=== PATIENT | female | born 1990 | race Caucasian/White ===

== ENCOUNTER 2018-08-02 11:20 | Outpatient (CLI) | payer BC, SELFPAY ==
--- NOTE | 2018-08-02 10:50 | DI.RAD_ITS ---
SYMPTOM/DIAGNOSIS: COUGH, R05 PA AND LATERAL CHEST: 08/02 The heart is not enlarged. The lungs are clear with interval clearing of patchy pulmonary infiltrate noted projected in right middle lobe on previous examination of 04/24/18. No pleural effusion seen. CONCLUSION: Negative examination of the chest.
== END 2018-08-02 11:40 ==
PROVIDERS: PCP Nurse Practitioner Family; Visit Provider Nurse Practitioner Family
DX: R05 Cough (principal)
CPT/HCPCS: 71046

== ENCOUNTER 2018-08-24 09:00 | Emergency (ER) | payer OTHER, BC, SELFPAY ==
[2018-08-24 09:05] VITALS: BP 129/87; PULSE 123; RESP 18; TEMP 36.4; O2SAT 97
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
[2018-08-24] MEDS: Acetaminophen 500 MG TAB 1000 MG PO (09:25)
[2018-08-24] MEDS: Normal Saline 1,000 ML 1000 ML IV (10:08)
[2018-08-24 10:19] LABS: Abs Immature Grans 0.03 k/cumm (0.0-0.09); Absolute Basophil Count 0.03 k/cumm (0.0-0.2); Absolute Eosinophil Count 0.14 k/cumm (0.0-0.7); Absolute Lymphocyte Count 2.01 k/cumm (1.2-3.4); Absolute Monocyte Count 0.63 k/cumm (0.11-0.7); Absolute Neutrophil Count 7.59 k/cumm (1.2-6.7); Basophils % 0.3; Eosinophils % 1.3; HCT 42.2 % (36.0-46.0); Immature Grans % 0.3; Lymphocytes % 19.3; Mean Corp. HGB Concentration 33.2 g/dL (32.0-36.0); Mean Corpuscular Hemoglobin 30.6 pg (27.0-33.0); Mean Corpuscular Volume 92.1 fL (80-95); Mean Platelet Volume 9.2 fL (8.0-11.0); Neutrophils % 72.8; Platelet Count 318 x1000/uL (130-400); RBC 4.58 m/cumm (4.00-5.20); RBC Distribution Width 12.9 % (11.7-14.6); White Blood Cell Count 10.43 k/cumm (4.4-10.8)
[2018-08-24 10:33] LABS: ALT 30 U/L (12-78); AST 15 U/L (15-37); Albumin 3.6 g/dL (3.4-5.0); Alkaline Phosphatase 85 U/L (46-116); Anion Gap 9.3 mmol/L (3-11); BUN 7 mg/dL (7-18); Bilirubin, Total 0.4 mg/dL (0.2-1.0); CO2 27.7 mmol/L (21.0-32.0); CREATININE 0.76 mg/dL (0.55-1.02); Calcium 9.1 mg/dL (8.5-10.1); Chloride 103 mmol/L (98-107); Glucose 107 mg/dL (70-100); Potassium 3.6 mmol/L (3.5-5.1); Sodium 140 mmol/L (136-145); Total Protein 7.5 g/dL (6.4-8.2)
[2018-08-24 10:35] LABS: Troponin I < 0.02 ng/mL (0.00-0.06)
[2018-08-24] MEDS: Omnipaque 350 MG/ML 100 ML BTL IJ (10:53)
[2018-08-24 11:08] VITALS: BP 120/83; PULSE 92; RESP 16; TEMP 36.7; O2SAT 98
[2018-08-24 12:20] VITALS: BP 132/83; PULSE 98; RESP 14; TEMP 37.2; O2SAT 98
== END 2018-08-24 12:22 | disposition home or self-care (01) ==
PROVIDERS: Emergency Provider Physician Assistant; PCP Nurse Practitioner Family
DX: S20.212A Contusion of left front wall of thorax, initial encounter (principal); S93.401A Sprain of unspecified ligament of right ankle, initial encounter; V47.6XXA Car passenger injured in collision with fixed or stationary object in traffic accident, initial encounter
CPT/HCPCS: 29515; 36415; 74177; 80053; 99285; 71260; 73610; 84484; 85025; 99284; J3490; L1902

== ENCOUNTER 2019-04-03 13:44 | Outpatient (REF) | payer OTHER, SELFPAY ==
--- NOTE | 2019-04-03 13:00 | PAPFT_PTH ---
PATIENT: Jade Garza LOC: [facility] U#:[id number] AGE/SX: 29/F ROOM: RE04/03/[address]: AMY Chávez : 1990 BED: DIS: 04/03/2019 SPEC #: [id number] RECD: 04/03/19 18:11 STATUS: IRMA REQ #: [id number] BRADY: 04/03/19 13:[address]: Yvette Fletcher DEPT: [facility] Cytology RECD BY: Carlie Perez ENTERED: 04/03/19 18:11 SP TYPE: PAPFT OTHR DR: Colette Clayton Tissues: 1 - CX/ENDOCX FOR PAP SMEARS Procedures: PAP THIN PREP/UVM Screening HPV DNA PROBE Comments: [id number]
== END 2019-04-03 14:04 ==
LOC: LBN 13:44
PROVIDERS: PCP Nurse Practitioner Family; Visit Provider Nurse Practitioner Family
DX: Z12.4 Encounter for screening for malignant neoplasm of cervix (principal); Z11.51 Encounter for screening for human papillomavirus (HPV)
CPT/HCPCS: 88142; 87624

== ENCOUNTER 2019-04-19 15:08 | Outpatient (REF) | payer OTHER, SELFPAY ==
--- NOTE | 2019-04-19 15:00 | ENDO_PTH ---
PATIENT: Jade Garza LOC: [facility] U#:[id number] AGE/SX: 29/F ROOM: RE04/19/[address]: Bill Leigh MD : 1990 BED: DIS: 04/19/2019 SPEC #: [id number] RECD: 04/19/19 17:41 STATUS: IRMA REQ #: [id number] BRADY: 04/19/19 15:[address]: Bill Leigh DEPT: Surgical Specimen RECD BY: Carlie Perez ENTERED: 04/19/19 17:42 SP TYPE: Endo OTHR DR: Colette Clayton Tissues: 1 - ENDOCERVICAL BX/CURRETTE Procedures: GROSS AND MICRO LEVEL 4 Comments: [id number]
== END 2019-04-19 15:28 ==
LOC: LBN 15:08
PROVIDERS: PCP Nurse Practitioner Family; Visit Provider Obstetrics & Gynecology
DX: N87.9 Dysplasia of cervix uteri, unspecified (principal); R87.810 Cervical high risk human papillomavirus (HPV) DNA test positive; Z87.410 Personal history of cervical dysplasia
CPT/HCPCS: 88305

== ENCOUNTER 2019-11-28 18:46 | Outpatient (REF) | payer SELFPAY ==
[2019-11-30 12:56] LABS: Chlamydia Result Negative (Negative); GC Result Negative (Negative)
== END 2019-11-28 19:06 ==
LOC: LBN 18:46
PROVIDERS: PCP Nurse Practitioner Family; Visit Provider Advanced Practice Midwife
DX: N89.8 Other specified noninflammatory disorders of vagina (principal); Z11.3 Encounter for screening for infections with a predominantly sexual mode of transmission
CPT/HCPCS: 87491; 87591; 87480; 87510; 87660

== ENCOUNTER 2020-05-06 09:31 | Outpatient (REF) | payer SELFPAY ==
--- NOTE | 2020-05-06 09:15 | PAPFT_PTH ---
PATIENT: Jade Garza LOC: [facility] U#:[id number] AGE/SX: 30/F ROOM: RE05/06/[address]: AMY Chávez : 1990 BED: DIS: 05/06/2020 SPEC #: [id number] RECD: 05/06/20 13:00 STATUS: IRMA RENancy #: [id number] BRADY: 05/06/20 09:[address]: Yvette Fletcher DEPT: [facility] Cytology RECD BY: Carlie Perez ENTERED: 05/06/20 13:00 SP TYPE: PAPFT OTHR DR: Colette Clayton Tissues: 1 - CX/ENDOCX FOR PAP SMEARS Procedures: PAP THIN PREP/UVM Screening HPV DNA PROBE Comments: [id number]
== END 2020-05-06 09:51 ==
LOC: LBN 09:31
PROVIDERS: PCP Nurse Practitioner Family; Visit Provider Nurse Practitioner Family
DX: Z12.4 Encounter for screening for malignant neoplasm of cervix (principal); Z11.51 Encounter for screening for human papillomavirus (HPV); R87.610 Atypical squamous cells of undetermined significance on cytologic smear of cervix (ASC-US)
CPT/HCPCS: 88142; 87624

== ENCOUNTER 2020-08-17 07:25 | Emergency (ER) | payer BC, SELFPAY ==
[2020-08-17 07:34] VITALS: BP 107/64; PULSE 109; RESP 18; TEMP 36.3; O2SAT 100
[2020-08-17 07:40] LABS: Bilirubin Negative (Negative); Blood Negative (Negative); Clarity Clear (Clear); Glucose Negative (Negative); Ketones Negative (Negative); Leukocyte Esterase Moderate (Negative); Nitrite Negative (Negative); Urobilinogen 0.2 EU/dL (Up TO 0.2)
[2020-08-17 07:57] LABS: Bacteria Few HPF (Negative); C & S Indicated? No/Sq. Contamination; Casts Negative LPF (Negative); Crystals Negative HPF (Negative); Epithelial Cells Many HPF (Negative); Mucus Negative (Negative); RBC 0-2 HPF (0-2)
[2020-08-17 08:22] LABS: Abs Immature Grans 0.05 10^3/uL (0.0-0.06); Absolute Basophil Count 0.04 10^3/uL (0.0-0.2); Absolute Eosinophil Count 0.13 10^3/uL (0.0-0.7); Absolute Lymphocyte Count 2.25 10^3/uL (1.2-3.4); Absolute Monocyte Count 0.56 10^3/uL (0.1-0.8); Basophils % 0.4; Eosinophils % 1.3; HCT 41.5 % (36.0-46.0); HGB 13.8 g/dL (11.2-15.7); Immature Grans % 0.5; Lymphocytes % 22.7; MCH 31.2 pg (27.0-33.0); MCHC 33.3 % (32.0-36.0); MCV 93.9 fL (80-95); MPV 9.2 fL (8.0-11.0); Monocytes % 5.6; Neutrophils % 69.5; Nucleated RBC 0 %; Platelet Count 266 10^3/uL (130-400); RBC 4.42 10^6/uL (3.93-5.22); RDW-SD 42.1 fL; WBC 9.93 10^3/uL (4.4-10.8)
[2020-08-17 08:36] LABS: ALT 15 U/L (14-59); AST 10 U/L (15-37); Albumin 3.8 g/dL (3.4-5.0); Alkaline Phosphatase 66 U/L (46-116); Anion Gap 7.2 mmol/L (3-11); BUN 8 mg/dL (7-18); Bilirubin, Total 0.5 mg/dL (0.2-1.0); CO2 25.8 mmol/L (21.0-32.0); Calcium 8.6 mg/dL (8.5-10.1); Chloride 104 mmol/L (98-107); Glucose 102 mg/dL (74-106); Lipase 106 U/L (73-393); Potassium 3.8 mmol/L (3.5-5.1); Sodium 137 mmol/L (136-145); Total Protein 7.2 g/dL (6.4-8.2)
--- NOTE | 2020-08-17 08:41 | ED.GENADUL_ITS ---
Discharge Plan Disposition Patient Disposition: HOME Condition: Stable Discharge Details Clinical Impression: Abdominal pain, Pancreatic lesion Primary Care Provider: Colette Clayton ED Provider: Christian Greenwood Home Meds and New Rx's Prescriptions: Continued Metamucil [place] powder 1 tbs PO ONCE RF: 0 multivitamin [Daily Multi-Vitamin] tablet 1 tab PO DAILY RF: 0 bupropion HCl [Wellbutrin XL] 150 mg tablet extended release 24 hr 150 mg PO QAM RF: 0 Discharge Instructions Instructions: How to Stop Smoking (ED), Abdominal Pain (ED) Additional Instructions: Allow for bowel rest: Please maintain a clear liquid diet today. You may advance her diet slowly to bland foods late tonight and continue to advance slowly as tolerated. Ultrasound and CT of her abdomen was interpreted by radiology and there was a notable echogenic structure seen in the pancreatic body/tail that was noted to possibly be a pancreatic lipoma. Radiologist noted that this could be further evaluated with pancreatic mass protocol MRI. Please discuss this with your primary care physician. Please contact your primary care physician to arrange follow-up. Call on Wednesday. Return to the ER for any worsening or new concerning symptoms. Referrals: Colette Clayton [Primary Care Provider] - Discharge Data Discharge Date/Time-TO BE ENTERED AT DEPARTURE: 08/17/20 11:50 Medical Decision Making 852??30-year-old female here with right upper quadrant abdominal pain that started yesterday, worse with deep inspiration, did have some nausea yesterday. Patient is focally tender in her right upper quadrant. No peritoneal findings. Bedside nzdel-vd-tqft ultrasound of the right upper quadrant was performed by me: No free fluid in Morison's pouch, view of the kidney reveals no significant hydronephrosis, gallbladder wall thickness 2.9mm, no pericholecystic fluid, no definite stone. Concern for acute cholecystitis with unvisualized stone in common bile duct versus hepatitis versus other. Plan to obtain official right upper quadrant abdominal ultrasound. Initial labs reviewed and no leukocytosis. LFTs normal. Lipase normal. Patient does have moderate leukocyte esterase and 5-10 WBCs with 0-2 RBCs on urinalysis. Patient has many epithelial cells. No urinary symptoms. Will attempt to repeat for clean-catch urinalysis. Toradol 30 mg IV for pain. 1026 --right upper quadrant ultrasound performed and technologist noted questionable lesion in the pancreas, no cholecystitis or choledocholithiasis. Awaiting radiology interpretation. I spoke with patient about results, plan for CT of the abdomen pelvis to assess for acute surgical pathology and to better characterize pancreas lesion. 1114 -- Ultrasound of the right upper quadrant interpreted by radiology: IMPRESSION: 1. Echogenic structure pancreatic body/tail. Possibly a pancreatic lipoma but indeterminate. This could be further evaluated with pancreatic mass protocol MRI with and without contrast. 2. Otherwise unremarkable exam. CT of the abdomen pelvis interpreted by radiology: IMPRESSION: 1. No acute findings. 2. There is no definite correlate for the small echogenic structure seen adjacent to or within the pancreas on the prior ultrasound. It is possible this could have represented a small indeterminate adjacent lymph node however pancreatic masses are poorly evaluated on single phase imaging. Although pancreatic malignancy felt uncommon in a patient of this age nonemergent dedicated multiphase pancreatic mass protocol imaging by either MRI or CT would better evaluate. Patient reassessed and pain has improved. Tachycardia resolved. She still continues to have some pain specifically with certain movements. Plan for outpatient follow-up with PCP. Patient should have MRI as outpatient as recommended in radiology report to better characterize pancreatic lesion. Usual customary discharge instructions were reviewed with the patient and it was stressed that she should return immediately for any worsening or new concerning symptoms. HPI General Mode of arrival: ambulatory . Date/Time Provider Initiated Documentation: 08/17/20 08:09 . Limitations to Documentation: no limitations . Information obtained by: patient . HPI Narrative: 30-year-old female presents with chief complaint of abdominal pain. Patient notes right upper quadrant abdominal pain that started yesterday late morning and has persisted and worsened. Patient notes pain came on gradually. Now moderate to severe. Pain described as sharp. Pain is worse when she takes a deep breath. Patient has had some recent associated nausea. No current nausea. No urinary symptoms. No vaginal discharge. No lower abdominal pain. Related Data Home Medications Medication Instructions Recorded Confirmed multivitamin 1 tab PO DAILY 04/03/19 08/17/20 psyllium seed (sugar) oral powder 1 tbs PO ONCE 04/03/19 08/17/20 bupropion HCl 150 mg 24 hr tablet, 150 mg PO QAM 11/28/19 08/17/20 extended release Allergies Allergy/AdvReac Type Severity Reaction Status Date / Time No Known Allergies Allergy Verified 08/17/20 07:41 General Stated Complaint: Abd Prob HEIDY: 3 Review of Systems All systems reviewed & are unremarkable except as noted in HPI and below Constitutional Constitutional: Denies fever(s) Cardiovascular Cardiovascular: Denies dyspnea Respiratory Respiratory: Denies dyspnea Gastrointestinal Gastrointestinal: Reports as per HPI Genitourinary Genitourinary: Denies hematuria, Denies dysuria and Denies vaginal discharge [facility] Medical History Mild dysplasia of cervix (THEODORA I) (05/17/17) Personal history of cervical dysplasia Hx THEODORA II-III 2011 Family History Mother Hypertension Menorrhagia Hysterectomy Social History Smoking/Tobacco Use Status: Current every day Tobacco Type: cigarettes Smoking risk assessment performed?: Yes Alcohol Intake: current Alcohol Intake frequency: a few times a week Drug use: Never Do you feel safe at home: Yes Do you feel safe in your relationship?: Yes Female Reproductive History Menstrual control method: permanent sterilization History History 2 Para 2 Hx # Term Pregnancies Multiple births Hx # Pregnancies Ectopic pregnancies AB induced Hx Number of Living Children AB spontaneous Exam Const General: cooperative and no acute distress HENMT Head: normocephalic Eyes Conjunctivae: normal conjunctivae Sclera: normal sclerae Neck Neck: trachea midline and supple Resp Auscultation: clear to auscultation bilaterally, no rales, no rhonchi and no wheezes Cardio Rate: regular rate and tachycardic Rhythm: regular rhythm Heart Sounds: no murmurs GI Palpation: soft, not firm, no guarding, no masses, not rigid and tender in the RUQ; with no rebound tenderness General: No CVA tenderness Skin General skin exam: no rashes or lesions noted Neuro General: patient alert, patient awake and tone normal Extrem General: no calf tenderness and no edema Psych Appearance: grossly normal Mental Status: mental status grossly normal Course Vital Signs Vital signs: Vital Signs Temperature 36.3 C L 08/17/20 07:34 Pulse 109 H 08/17/20 07:34 Respiratory Rate 18 08/17/20 07:34 Blood Pressure 107/64 08/17/20 07:34 Pulse Oximetry 100 08/17/20 07:34 Temperature 36.3 C L 08/17/20 07:34 Temperature Source Temporal Artery Scan 08/17/20 07:34 Pulse 109 H 08/17/20 07:34 Respiratory Rate 18 08/17/20 07:34 Respiratory Effort Non-Labored 08/17/20 07:39 Blood Pressure 107/64 08/17/20 07:34 Blood Pressure Position Sitting 08/17/20 07:34 Pulse Oximetry 100 08/17/20 07:34 Oxygen Delivery Method Room Air 08/17/20 07:34 Oxygen Flow Rate 0 08/17/20 07:34 Pain Level 8 08/17/20 07:34 Lab/Test Results Lab/Test Results: Laboratory Tests Range/Units 08/17/20 08/17/20 08/17/20 07:32 08:00 08:00 WBC (4.4-10.8) 10^3/uL 9.93 RBC (3.93-5.22) 10^6/uL 4.42 Hgb (11.2-15.7) g/dL 13.8 Hct (36.0-46.0) % 41.5 MCV (80-95) fL 93.9 MCH (27.0-33.0) pg 31.2 MCHC (32.0-36.0) % 33.3 RDW (11.7-14.6) % 12.0 Plt Count (130-400) 10^3/uL 266 MPV (8.0-11.0) fL 9.2 Immature Gran % 0.5 Neutrophils % 69.5 Lymphocytes % 22.7 Monocytes % 5.6 Eosinophils % 1.3 Basophils % 0.4 Nucleated RBC % % 0 Absolute Neutrophils (1.2-6.7) 10^3/uL 6.90 H Absolute Lymphocytes (1.2-3.4) 10^3/uL 2.25 Absolute Monocytes (0.1-0.8) 10^3/uL 0.56 Absolute Eosinophils (0.0-0.7) 10^3/uL 0.13 Absolute Basophils (0.0-0.2) 10^3/uL 0.04 Sodium (136-145) mmol/L 137 Potassium (3.5-5.1) mmol/L 3.8 Chloride (98-107) mmol/L 104 Carbon Dioxide (21.0-32.0) mmol/L 25.8 Anion Gap (3-11) mmol/L 7.2 BUN (7-18) mg/dL 8 Creatinine (0.55-1.02) mg/dL 0.80 Estimated GFR/1.73 m2 (mL/min/1.73m2) >= 60.00 Glucose (74-106) mg/dL 102 Calcium (8.5-10.1) mg/dL 8.6 Total Bilirubin (0.2-1.0) mg/dL 0.5 AST (15-37) U/L 10 L ALT (14-59) U/L 15 Alkaline Phosphatase (46-116) U/L 66 Total Protein (6.4-8.2) g/dL 7.2 Albumin (3.4-5.0) g/dL 3.8 Lipase (73-393) U/L 106 Urine Color (Yellow) Yellow Urine Clarity (Clear) Clear Urine pH (5-8) 7.0 Ur Specific [employer] (1.005-1.025) 1.010 Urine Protein (Negative) mg/dL Negative Urine Ketones (Negative) mg/dL Negative Urine Blood (Negative) Negative Urine Nitrite (Negative) Negative Urine Bilirubin (Negative) Negative Urine Urobilinogen (Up TO 0.2) EU/dL 0.2 Ur Leukocyte Esterase (Negative) Moderate H Urine RBC (0-2) HPF 0-2 Urine WBC (0-5) HPF 5-10 Ur Epithelial Cells (Negative) HPF Many Urine Crystals (Negative) HPF Negative Urine Bacteria (Negative) HPF Few Urine Casts (Negative) LPF Negative Urine Mucus (Negative) Negative Ur Culture Indicated? No/sq. contamination Urine Glucose (Negative) mg/dL Negative POC- Test(urine) Negative
[2020-08-17] MEDS: Ketorolac 30 MG/ML VIAL IVP (08:51)
[2020-08-17] MEDS: Lactated Ringers 500 ML IV (08:51)
--- NOTE | 2020-08-17 09:15 | DI.US_ITS ---
EXAM: US ABDOMEN LIMITED CLINICAL HISTORY: RUQ PAIN TECHNIQUE: Ultrasound abdomen performed using standard protocol. COMPARISON: CT CT ABDOMEN PELVIS W from 08/17/2020 FINDINGS: LIVER: Normal size and echogenicity. No focal liver lesions are seen.. GALLBLADDER: No evidence of cholelithiasis. No evidence of wall thickening. No pericholecystic fluid identified. MILLS'S SIGN: Negative. BILIARY SYSTEM: No intrahepatic or extrahepatic biliary ductal dilation. KIDNEYS: Kidneys are symmetric in size. No evidence of renal calculi. No evidence of hydronephrosis. No renal mass or cyst identified. PANCREAS: 8 millimeter echogenic focus in the body versus artifact. SPLEEN: Not enlarged. ABDOMINAL AORTA AND IVC: Visualized portions normal caliber. ASCITES: None seen. IMPRESSION: 8 millimeter echogenic focus in the pancreas could represent an artifact versus small lipoma. No acu te abnormality. DATA REPOSITORY:
[2020-08-17 09:46] LABS: Bilirubin Negative (Negative); Blood Negative (Negative); Clarity Sl Cloudy (Clear); Glucose Negative (Negative); Ketones Negative (Negative); Leukocyte Esterase Negative (Negative); Nitrite Negative (Negative); Specific Gravity 1.015 (1.005-1.025); Urobilinogen 0.2 EU/dL (Up TO 0.2); pH 7.5 (5-8)
[2020-08-17] MEDS: Normal Saline Flush 10 ML SYR IVP (10:36)
[2020-08-17] MEDS: Omnipaque 350 MG/ML 100 ML BTL IJ (10:36)
--- NOTE | 2020-08-17 10:38 | DI.CT_ITS ---
EXAM: CT ABDOMEN PELVIS W CLINICAL HISTORY: ruq abd pain, US pancreatic lesion?. TECHNIQUE: Imaging Protocol: Axial computed tomography images with coronal and sagittal reformatted images were created and reviewed CONTRAST MATERIAL: Intravenous: Omnipaque 350 Contrast volume:100 cc Oral: no FINDINGS: ABDOMEN: Lung Bases: Normal where visualized. Liver: Normal density. No measurable mass. Gallbladder and biliary tract: No radiodense calculus or dilation. Pancreas: Normal density, no abnormal calcifications or inflammatory process. No focal lesion is iden tified. The questioned 8 millimeter focus could have represented a small amount of adjacent fat. Spleen: Normal. Kidneys: Normal size, contour and axis. No radiodense stones or obstructive uropathy. No masses seen. Adrenal glands: No masses seen. Abdominal Aorta: Abdominal portion non-dilated. PELVIS: Bladder: Nondistended, no gross wall thickening. Bowel: No obstruction or bowel wall thickening. Peritoneal cavity: No ascites, collection or mesenteric inflammatory response. Bones: Within normal limits. Reproductive organs: Collapsing follicle right ovary. Physiologic amount of free fluid. Lymph nodes: Unremarkable. Impression: Unremarkable CT scan of the abdomen and pelvis. No abnormality is identified in the pancreas. The fi ndings on ultrasound could have been artifactual or could represent a focus adjacent fat. RADIATION DOSE DELIVERED: 931.93mGy.cm Total DLP DATA REPOSITORY: All CT scans at this facility are submitted to the National Radiology Data Registry (NRDR) Dose Index Registry (DIR) with the [employer] (ACR). RADIATION OPTIMIZATION: All CT scans at this facility use at least one of these dose optimization te chniques: automated exposure control; mA and/or kV adjustment per patient size (includes targeted exa ms where dose is matched to clinical indication); or iterative reconstruction.
--- NOTE | 2020-08-17 10:48 | DI.VRAD_ITS ---
PROCEDURE INFORMATION: Exam: US Abdomen, Limited; Right Upper Quadrant Exam date and time: 08/17/2020 10:15 AM Age: 30 years old Clinical indication: Other: Ruq pain since yesterday in the am. TECHNIQUE: Imaging protocol: US abdomen. Real time ultrasound with image documentation. Limited exam focused on the right upper quadrant. COMPARISON: CT Abdomen^CAP WITH (Adult) 08/24/2018 10:31 AM FINDINGS: Liver: Unremarkable liver. Gallbladder: Unremarkable gallbladder. Negative reported sonographic Toney sign. Common bile duct: Common bile duct measures normal caliber. Pancreas: There is a small echogenic lesion seen within the pancreatic body/tail measuring up to 8 mm. No significant vascularity is seen. Right kidney: Unremarkable right kidney. Aorta: Visualized aorta is normal caliber. Portal venous: Portal vein demonstrates appropriate directional flow. Inferior vena cava: Visualized IVC unremarkable. IMPRESSION: 1. Echogenic structure pancreatic body/tail. Possibly a pancreatic lipoma but indeterminate. This could be further evaluated with pancreatic mass protocol MRI with and without contrast. 2. Otherwise unremarkable exam. Dictated and Authenticated by: John Boyd MD. Ordering:THIERNO Valles MD
[2020-08-17] MEDS: Normal Saline - Diluent 50 ML VIAL IV (10:49)
--- NOTE | 2020-08-17 11:10 | DI.VRAD_ITS ---
PROCEDURE INFORMATION: Exam: CT Abdomen And Pelvis With Contrast Exam date and time: 08/17/2020 10:20 AM Age: 30 years old Clinical indication: Abdominal pain; Other: Ruq pain; Patient HX: Ruq abdomen pain, u/s pancreatic lesion. TECHNIQUE: Imaging protocol: Computed tomography of the abdomen and pelvis with intravenous contrast. Radiation optimization: All CT scans at this facility use at least one of these dose optimization techniques: automated exposure control; mA and/or kV adjustment per patient size (includes targeted exams where dose is matched to clinical indication); or iterative reconstruction. Contrast material: OMNI-PAQUE 350; Contrast volume: 100 ml; Contrast route: INTRAVENOUS (IV); COMPARISON: CT Abdomen^CAP WITH (Adult) 08/24/2018 10:31 AM FINDINGS: Lungs: Dependent atelectasis otherwise lung bases. Heart: Visualized heart normal size. Liver: Unremarkable liver. Gallbladder and bile ducts: Unremarkable gallbladder. Pancreas: Unremarkable pancreas. Spleen: Unremarkable spleen. Adrenals: Unremarkable bilateral adrenal glands. Kidneys and ureters: Unremarkable bilateral kidneys. Ureters are not well visualized. No hydronephrosis. Stomach and bowel: Nonobstructed bowel. Appendix: Appendix not identified. Intraperitoneal space: Small amount of free fluid within the pelvis likely physiologic in a patient of this age. No free air. Vasculature: Patent portal and hepatic veins. Normal caliber aorta. Lymph nodes: Scattered nonspecific small nodes may be physiologic and or reactive. Urinary bladder: Bladder poorly distended limited evaluation however grossly unremarkable. Reproductive: Unremarkable uterus for age. Tubal ligations. Unremarkable bilateral adnexa. Bones/joints: No acute fracture or dislocation. Soft tissues: Unremarkable superficial soft tissues. IMPRESSION: 1. No acute findings. 2. There is no definite correlate for the small echogenic structure seen adjacent to or within the pancreas on the prior ultrasound. It is possible this could have represented a small indeterminate adjacent lymph node however pancreatic masses are poorly evaluated on single phase imaging. Although pancreatic malignancy felt uncommon in a patient of this age nonemergent dedicated multiphase pancreatic mass protocol imaging by either MRI or CT would better evaluate. Dictated and Authenticated by: John Boyd MD. Ordering:MARY Gonzales MD
[2020-08-17 11:48] VITALS: BP 108/63; PULSE 87; RESP 18; TEMP 36.8; O2SAT 98
--- NOTE | 2020-08-17 13:17 | NUR.NOTE ---
Nursing Note: Referral faxed to PCP for follow up. Samantha Herring
== END 2020-08-17 11:50 | disposition home or self-care (01) ==
PROVIDERS: Emergency Provider Student in an Organized Health Care Education/Training Program; PCP Nurse Practitioner Family
DX: R93.3 Abnormal findings on diagnostic imaging of other parts of digestive tract (principal); R10.11 Right upper quadrant pain; R11.0 Nausea
CPT/HCPCS: 36415; 80053; 81025; 83690; 96361; 96374; 99285; 74177; 76705; 81003; 81015; 85025; 99284; J1885; J3490

== ENCOUNTER 2020-08-26 00:39 | Outpatient (CLI) | payer BC, SELFPAY ==
--- NOTE | 2020-08-26 10:25 | DI.MRI_ITS ---
EXAM: MR ABDOMEN WO/W CLINICAL HISTORY: PANCREATIC LESION,K86.9,F/U ABNL US AND CT. TECHNIQUE: Multiplanar multisequence MRI was performed. COMPARISON: CT CT ABDOMEN PELVIS W from 08/17/2020 FINDINGS: MR examination was performed utilizing pancreatic protocol to evaluate questionable focus of abnormal echogenicity associated with the pancreatic body on recent ultrasound examination. Noncontrast and post contrast scanning was performed. There is normal appearance of liver. No biliary dilatation. Unremarkable appearance of the gallbladder and bile ducts. Spleen appears normal. Adrenals and kidn eys appear normal. Abdominal aorta is of normal diameter. Pancreas shows normal homogeneous signal throughout with no evidence of a mass or a no evidence of pa ncreatic ductal dilatation. IMPRESSION: Negative pancreatic protocol MRI. No evidence of a pancreatic mass. DATA REPOSITORY:
[2020-08-26] MEDS: Gadoterate meglumine 20 ML VIAL 14 ML IV (10:31)
== END 2020-08-26 00:59 ==
PROVIDERS: PCP Nurse Practitioner Family; Visit Provider Nurse Practitioner Family
DX: K86.9 Disease of pancreas, unspecified (principal)
CPT/HCPCS: 74183

== ENCOUNTER 2021-03-19 16:22 | Outpatient (REF) | payer BC, SELFPAY ==
--- NOTE | 2021-03-19 15:30 | ENDO_PTH ---
PATIENT: Jade Garza LOC: N U#:[id number] AGE/SX: 31/F ROOM: RE03/19/[address]: Sindi Malik DO : 1990 BED: DIS: 03/19/2021 SPEC #: [id number] RECD: 03/19/21 16:58 STATUS: IRMA REQ #: [id number] BRADY: 03/19/21 15:[address]: Sindi Malik DEPT: Surgical Specimen RECD BY: Carlie Perez ENTERED: 03/19/21 16:58 SP TYPE: Endo OTHR DR: Colette Clayton Tissues: 1 - ENDOCERVICAL BX/CURRETTE Procedures: GROSS AND MICRO LEVEL 4 Comments: [id number]
== END 2021-03-19 16:23 | disposition home or self-care (01) ==
LOC: LBN 16:22
PROVIDERS: PCP Nurse Practitioner Family; Visit Provider Obstetrics & Gynecology
DX: R87.610 Atypical squamous cells of undetermined significance on cytologic smear of cervix (ASC-US) (principal); Z87.410 Personal history of cervical dysplasia; N88.8 Other specified noninflammatory disorders of cervix uteri
CPT/HCPCS: 88305

== ENCOUNTER 2021-09-11 13:22 | Outpatient (REF) | payer BC, SELFPAY ==
[2021-09-11 20:58] LABS: Abs Immature Grans 0.02 10^3/uL (0.0-0.06); Absolute Basophil Count 0.06 10^3/uL (0.0-0.2); Absolute Lymphocyte Count 3.08 10^3/uL (1.2-3.4); Absolute Monocyte Count 0.51 10^3/uL (0.1-0.8); Basophils % 0.7; Eosinophils % 2.2; HCT 43.3 % (36.0-46.0); HGB 13.6 g/dL (11.2-15.7); Immature Grans % 0.2; Lymphocytes % 34.3; MCH 30.5 pg (27.0-33.0); MCHC 31.4 % (32.0-36.0); MCV 97.1 fL (80-95); MPV 9.5 fL (8.0-11.0); Monocytes % 5.7; Neutrophils % 56.9; Nucleated RBC 0 %; Platelet Count 328 10^3/uL (130-400); RBC 4.46 10^6/uL (3.93-5.22); RDW 11.9 % (11.7-14.6); RDW-SD 42.9 fL; WBC 8.97 10^3/uL (4.4-10.8)
[2021-09-12 06:40] LABS: ALT 27 U/L (14-59); AST 16 U/L (15-37); Albumin 4.4 g/dL (3.4-5.0); Alkaline Phosphatase 88 U/L (46-116); Anion Gap 9.1 mmol/L (3-11); BUN 10 mg/dL (7-18); Bilirubin, Total 0.3 mg/dL (0.2-1.0); CO2 27.9 mmol/L (21.0-32.0); CREATININE 0.9 mg/dL (0.55-1.02); Chloride 106 mmol/L (98-107); Glucose 96 mg/dL (74-106); Lipase 178 U/L (73-393); Potassium 4.2 mmol/L (3.5-5.1); Sodium 143 mmol/L (136-145); Total Protein 7.9 g/dL (6.4-8.2)
== END 2021-09-11 13:23 | disposition home or self-care (01) ==
LOC: NCHCN 13:22
PROVIDERS: PCP Nurse Practitioner Family; Visit Provider Family Medicine
DX: R10.11 Right upper quadrant pain (principal)
CPT/HCPCS: 80053; 83690; 85025

== ENCOUNTER 2022-03-24 16:21 | Outpatient (REF) | payer BC, SELFPAY ==
--- NOTE | 2022-03-24 16:00 | ENDO_PTH ---
PATIENT: Jade Garza LOC: [facility] U#:[id number] AGE/SX: 32/F ROOM: RE03/24/[address]: Sindi Malik DO : 1990 BED: DIS: 03/24/2022 SPEC #: [id number] RECD: 03/25/22 12:50 STATUS: IRMA REQ #: [id number] BRADY: 03/24/22 16:[address]: Sindi Malik DEPT: Surgical Specimen RECD BY: Carlie Perez ENTERED: 03/25/22 12:50 SP TYPE: Endo OTHR DR: Colette Clayton Tissues: 1 - ENDOCERVICAL BX/CURRETTE Procedures: GROSS AND MICRO LEVEL 4 Comments: [id number]
--- NOTE | 2022-03-24 16:00 | PAPFT_PTH ---
PATIENT: Jade Garza LOC: [facility] U#:[id number] AGE/SX: 32/F ROOM: RE03/24/[address]: Sindi Malik DO : 1990 BED: DIS: 03/24/2022 SPEC #: [id number] RECD: 03/25/22 13:07 STATUS: IRMA REQ #: [id number] BRADY: 03/24/22 16:[address]: Sindi Malik DEPT: [facility] Cytology RECD BY: Carlie Perez ENTERED: 03/25/22 13:08 SP TYPE: PAPFT OTHR DR: Colette Clayton Tissues: 1 - CX/ENDOCX FOR PAP SMEARS Procedures: PAP THIN PREP/UVM Screening HPV DNA PROBE Comments: [id number] (CHLAMYDIA/GC)
[2022-03-26 15:32] LABS: Chlamydia Result Negative (Negative); GC Result Negative (Negative)
== END 2022-03-24 16:22 | disposition home or self-care (01) ==
LOC: LBN 16:21
PROVIDERS: PCP Nurse Practitioner Family; Visit Provider Obstetrics & Gynecology
DX: Z12.4 Encounter for screening for malignant neoplasm of cervix (principal); R87.612 Low grade squamous intraepithelial lesion on cytologic smear of cervix (LGSIL); R87.810 Cervical high risk human papillomavirus (HPV) DNA test positive; N88.8 Other specified noninflammatory disorders of cervix uteri; N87.0 Mild cervical dysplasia; Z11.3 Encounter for screening for infections with a predominantly sexual mode of transmission
CPT/HCPCS: 87491; 87591; 88142; 88305; 87624

== ENCOUNTER 2023-01-12 09:59 | Outpatient (REF) | payer BC, SELFPAY ==
[2023-01-12 15:29] LABS: HCT 38.2 % (36.0-46.0); HGB 12.8 g/dL (11.2-15.7); MCHC 33.5 % (32.0-36.0); MCV 93 fL (80-95); MPV 9.1 fL (8.0-11.0); Platelet Count 332 10^3/uL (130-400); RBC 4.13 10^6/uL (3.93-5.22); RDW 12.2 % (11.7-14.6); RDW-SD 41.3 fL; WBC 8.69 10^3/uL (4.4-10.8)
[2023-01-12 16:20] LABS: Iron 81 ug/dL (50-170); Total Iron Binding Capacity 257 ug/dL (250-450); Transferrin Sat 32 % (15-50)
[2023-01-12 16:30] LABS: Anion Gap 9.4 mmol/L (3-11); BUN 10 mg/dL (7-18); CO2 27.6 mmol/L (21.0-32.0); CREATININE 0.7 mg/dL (0.55-1.02); Calcium 8.9 mg/dL (8.5-10.1); Chloride 105 mmol/L (98-107); Estimated GFR 116.31 (mL/min/1.73m2); Glucose 97 mg/dL (74-106); Potassium 4.3 mmol/L (3.5-5.1); Sodium 142 mmol/L (136-145); TSH (W/Ref FT4) 1.53 uIU/mL (0.36-3.74)
[2023-01-12 16:42] LABS: Vitamin D 25 Total 26.5 ng/mL (30-100)
== END 2023-01-12 10:00 | disposition home or self-care (01) ==
LOC: NCHCN 09:59
PROVIDERS: PCP Nurse Practitioner Family; Visit Provider Nurse Practitioner Family
DX: R63.5 Abnormal weight gain (principal); R53.83 Other fatigue; N93.8 Other specified abnormal uterine and vaginal bleeding; E55.9 Vitamin D deficiency, unspecified
CPT/HCPCS: 80048; 82306; 85027; 83540; 83550; 84443

== ENCOUNTER 2023-03-30 15:33 | Outpatient (REF) | payer BC, SELFPAY ==
--- NOTE | 2023-03-30 15:30 | PAPFT_PTH ---
PATIENT: Jade Garza LOC: [facility] U#:[id number] AGE/SX: 33/F ROOM: RE03/30/[address]: Sindi Malik DO : 1990 BED: DIS: 03/30/2023 SPEC #: [id number] RECD: 03/30/23 17:14 STATUS: IRMA REQ #: [id number] BRADY: 03/30/23 15:[address]: Sindi Malik DEPT: [facility] Cytology RECD BY: Carlie Perez ENTERED: 03/30/23 17:14 SP TYPE: PAPFT OTHR DR: Colette Clayton Tissues: 1 - CX/ENDOCX FOR PAP SMEARS Procedures: PAP THIN PREP/UVM Screening HPV DNA PROBE Comments: [id number]
== END 2023-03-30 15:34 | disposition home or self-care (01) ==
LOC: LBN 15:33
PROVIDERS: PCP Nurse Practitioner Family; Visit Provider Obstetrics & Gynecology
DX: Z12.4 Encounter for screening for malignant neoplasm of cervix (principal); R87.610 Atypical squamous cells of undetermined significance on cytologic smear of cervix (ASC-US); Z11.51 Encounter for screening for human papillomavirus (HPV); Z87.410 Personal history of cervical dysplasia
CPT/HCPCS: 88142; 87624

== ENCOUNTER 2023-04-12 15:31 | Outpatient (REF) | payer BC, SELFPAY ==
[2023-04-17 00:52] LABS: HSV 1 PCR Negative (Negative); HSV 2 PCR Negative (Negative)
== END 2023-04-12 15:32 | disposition home or self-care (01) ==
LOC: NCHCN 15:31
PROVIDERS: PCP Nurse Practitioner Family; Visit Provider Family Medicine
DX: R21 Rash and other nonspecific skin eruption (principal); Z11.59 Encounter for screening for other viral diseases
CPT/HCPCS: 87529

== ENCOUNTER 2023-06-01 15:57 | Outpatient (REF) | payer BC, SELFPAY ==
--- NOTE | 2023-06-01 15:40 | ENDO_PTH ---
PATIENT: Jade Garza LOC: [facility] U#:[id number] AGE/SX: 33/F ROOM: RE06/01/[address]: Sindi Malik DO : 1990 BED: DIS: 06/01/2023 SPEC #: [id number] RECD: 06/01/23 17:21 STATUS: IRMA RE #: [id number] BRADY: 06/01/23 15:[address]: Sindi Malik DEPT: Surgical Specimen RECD BY: Carlie Perez ENTERED: 06/01/23 17:22 SP TYPE: Endo OTHR DR: Colette Clayton Tissues: 1 - ENDOCERVICAL BX/CURRETTE Procedures: GROSS AND MICRO LEVEL 4 Comments: [id number]
== END 2023-06-01 15:58 | disposition home or self-care (01) ==
LOC: LBN 15:57
PROVIDERS: PCP Nurse Practitioner Family; Visit Provider Obstetrics & Gynecology
DX: N88.8 Other specified noninflammatory disorders of cervix uteri (principal); R87.810 Cervical high risk human papillomavirus (HPV) DNA test positive; R87.610 Atypical squamous cells of undetermined significance on cytologic smear of cervix (ASC-US)
CPT/HCPCS: 88305

== ENCOUNTER 2023-07-17 11:22 | Emergency (ER) | payer BC, SELFPAY ==
[2023-07-17] VITALS (35 sets, daily range): BP systolic 118–146; BP diastolic 59–96; PULSE 63–102; RESP 14–25; TEMP 36.6; O2SAT 98–100
--- NOTE | 2023-07-17 11:15 | RT.EKG_ITS ---
APPROVED REPORT Exam: Resting ECG Reason for Exam: dizzy Patient Location: E HR:69 bpm ECG Measurements Heart Rate 69 AXIS IL 147 P 43 QRSd 88 QRS 43 QT 393 T 55 QTc 422 Conclusion Sinus rhythm...normal P axis, V-rate 60- 99
--- NOTE | 2023-07-17 11:30 | DI.CT_ITS ---
Exam(s) CT BRAIN NECK CTA EXAM: CT BRAIN NECK CTA CLINICAL HISTORY: ?dissection. TECHNIQUE: Imaging Protocol: Axial CT angiography was performed with multi-slice acquisition and mu lti-planar and 3D reconstructions. CONTRAST MATERIAL: Intravenous: Omnipaque 350 Contrast volume:100 ml COMPARISON: CT CT ABDOMEN PELVIS W from 08/17/2020 FINDINGS: CT Head W/O and W contrast: Ventricles and Extra axial spaces: Normal in size and morphology for the patient's age. Hemorrhage: None. Cerebral parenchyma: Normal. Midline shift: None. Brainstem/Cerebellum: Normal. Calvarium: Normal. Visualized Paranasal sinuses/Mastoids: Clear. Soft Tissues: Unremarkable. Enhancement: Normal. CTA Brain W: Internal Carotid Arteries: Petrous: Normal. Cavernous: Normal. Cerebral: Normal. Middle Cerebral Arteries: Right: No aneurysm, occlusion or significant stenosis. Left: No aneurysm, occlusion or significant stenosis. Anterior Cerebral Arteries: Right: No aneurysm, occlusion or significant stenosis. Left: No aneurysm, occlusion or significant stenosis. Posterior cerebral Arteries: Right: No aneurysm, occlusion or significant stenosis. Left: No aneurysm, occlusion or significant stenosis. Vertebral Arteries: Right: No aneurysm, occlusion or significant stenosis. Left: No aneurysm, occlusion or significant stenosis. Basilar Artery: No aneurysm, occlusion or significant stenosis. CTA Neck W: Common Carotid: Right: No dissection, occlusion or significant stenosis. Left: No dissection, occlusion or significant stenosis. External Carotid: Right: No dissection, occlusion or significant stenosis. Left: No dissection, occlusion or significant stenosis. Internal Carotid: Right: No dissection, occlusion or significant stenosis. Left: No dissection, occlusion or significant stenosis. Vertebral Artery: Right: No dissection, occlusion or significant stenosis. Left: No dissection, occlusion or significant stenosis. Lung Apices: Normal. Bones: No acute abnormality. Soft Tissues: Normal. IMPRESSION: 1. Normal CTA examination of the [place]. No evidence of aneurysm. 2. Unremarkable CT Head. 3. Normal CTA examination of the neck. No evidence of dissection RADIATION DOSE DELIVERED: Total DLP DATA REPOSITORY: All CT scans at this facility are submitted to the National Radiology Data Registry (NRDR) Dose Index Registry (DIR) with the [employer] (ACR). RADIATION OPTIMIZATION: All CT scans at this facility use at least one of these dose optimization te chniques: automated exposure control; mA and/or kV adjustment per patient size (includes targeted exa ms where dose is matched to clinical indication); or iterative reconstruction.
--- NOTE | 2023-07-17 11:33 | ED.GENADUL_ITS ---
Discharge Plan Disposition Patient Disposition: Home Condition: Stable Discharge Details Clinical Impression: Light-headed, Dizziness Primary Care Provider: Colette Clayton ED Provider: Osiel Dougherty Home Meds and New Rx's Prescriptions: Continued multivitamin [Daily Multi-Vitamin] tablet 1 tab PO DAILY Mirena 20 mcg/24 hours (7 yrs) 52 mg intrauterine device 1 device intrauterine ONCE Rx Instructions: as a single dose fluoxetine [Prozac] 10 mg capsule 10 mg PO DAILY Qty: 30 3RF Rx Instructions: Take 1 week prior to in the first 3 days of her menstrual cycle Discharge Instructions Instructions: Dizziness (ED) Additional Instructions: your ekg, blood work and cat scan did not show concerning findings follow up with your primary care provider within 1 week if you feel more ill, have severe pain or difficulty breathing return to the emergency department Medical Decision Making 33 yo female with no significant pmhx comes in with cc lightheaded. She felt well when she woke up this morning and was at a football game when she started to feel lightheaded and dizzy and saw spots in her vision. Denies loc and denies chest pain, dyspnea, changes in speech or unilateral weakness. she states she feels improved but still feels lightheaded. She is caox4 on arrival, speaking clearly. She has no focal deficits, CN II-XII intact, nih of 0, reassuring hints exam. Unclear etiology for her symptoms, suspect presyncope and will obtain ekg/troponin, cbc, cmp, and though she has no deficits to suggest cva will obtain ct head and cta neck/brain to evaluate for dissection pt stable and feels better now asymptomatic, labs and imaging unremarkable, will obtain delta troponin pt still feels well, delta troponin negative, she is stable for d/c, able to ambulate unassisted with normal gait. ADvised to f/u with pcp and return precautions given Differential Diagnosis Differential Diagnosis: presyncope, vertigo, dissection Imaging Data Radiologic Study: Attestation: I personally reviewed and interpreted this imaging study as follows: Imaging: CT Scan Radiologist's impression: no acute findings Lab Data Lab results reviewed: Yes I reviewed the patient's lab results. ECG Data Attestation: I personally reviewed and interpreted this ECG (s) as follows: Prior ECG tracings: not available for review Interpretation: sinus rate of 69 pr 147 no stemi HPI General Mode of arrival: EMS . Date/Time Provider Initiated Documentation: 07/17/23 11:25 . Limitations to Documentation: no limitations . Information obtained by: patient . History of Present Illness 33 year old F presents to the emergency department with the chief complaint of lightheaded, described as moderate, Patient started experiencing this hour(s) (1) and it has been constant. No relieving factors improve symptom(s), No exacerbating factors reported . Patient notes denies chest pain, fever/chills and shortness of breath. Patient did receive the following treatments prior to arrival, none Related Data Home Medications Medication Instructions Recorded Confirmed multivitamin (Daily Multi-Vitamin 1 tab PO DAILY 04/03/19 07/17/23 tablet) levonorgestrel 21 mcg/24 hours (8 1 device intrauterine ONCE 06/29/22 07/17/23 yrs) 52 mg intrauterine device (Mirena) fluoxetine 10 mg capsule (Prozac) 10 mg PO DAILY #30 caps 03/30/23 07/17/23 Previous Rx's Medication Instructions Recorded fluoxetine 10 mg capsule (Prozac) 10 mg PO DAILY #30 caps 03/30/23 Allergies Allergy/AdvReac Type Severity Reaction Status Date / Time No Known Allergies Allergy Verified 07/17/23 11:25 General Stated Complaint: AMS/LOC HEIDY: 3 Review of Systems All systems reviewed & are unremarkable except as noted in HPI and below Constitutional Constitutional: Denies chills, Denies fever(s) and Denies weakness Eyes Eyes: Denies loss of vision Cardiovascular Cardiovascular: Denies chest pain and Denies dyspnea Respiratory Respiratory: Denies cough and Denies dyspnea Gastrointestinal Gastrointestinal: Denies abdominal pain, Denies nausea and Denies vomiting Genitourinary Genitourinary: Denies dysuria Neurologic Neurologic: Denies loss of vision and Denies weakness PFSH All Active Problems (Updated 07/17/23 @ 14:29 by Osiel Dougherty MD) Light-headed (Acute) Dizziness (Acute) PMS (premenstrual syndrome) (Acute) IUD surveillance (Acute) Dysfunctional uterine bleeding (Acute) Personal history of cervical dysplasia (Acute) Hx THEODORA II-III 2012 ASCUS, 05/2023. Colposcopy 06/2023 with E[facility], no biopsies taken. Mild dysplasia of cervix (THEODORA I) (Acute 05/17/17) Family History Mother Hypertension Menorrhagia Hysterectomy Social History Smoking/Tobacco Use Status: Current every day Tobacco Type: cigarettes Smoking risk assessment performed?: Yes Alcohol Intake: current Alcohol Intake frequency: a few times a week Drug use: Never Substance use type: does not use Do you feel safe at home: Yes Do you feel safe in your relationship?: Yes Female Reproductive History Menstrual control method: permanent sterilization History History 2 Para 2 Hx # Term Pregnancies Multiple births Hx # Pregnancies Ectopic pregnancies AB induced Hx Number of Living Children AB spontaneous Exam Const General: no acute distress Orientation: alert HENMT Head: normal to inspection Ears: external ears normal General nose exam: external nose normal Mouth: moist mucous membranes Eyes General: appearance normal, both eyes and all related structures Neck Neck: normal visual inspection Resp Effort & Inspection: normal respiratory effort and able to speak in complete sentences Auscultation: clear to auscultation bilaterally Cardio Jugular venous pressure: no JVD Rate: regular rate Heart Sounds: no murmurs Skin General skin exam: no rashes or lesions noted Neuro General: patient alert and patient oriented x3 Extrem General: normal to inspection Psych Mental Status: mental status grossly normal Course Vital Signs Vital signs: Vital Signs Temperature 36.6 C 07/17/23 11:17 Pulse 88 07/17/23 11:17 Respiratory Rate 20 07/17/23 11:17 Blood Pressure 146/96 H 07/17/23 11:17 Pulse Oximetry 99 07/17/23 11:17 Temperature 36.6 C 07/17/23 11:17 Temperature Source Oral 07/17/23 11:17 Pulse 88 07/17/23 11:17 Respiratory Rate 20 07/17/23 11:17 Respiratory Effort Normal 07/17/23 11:24 Blood Pressure 146/96 H 07/17/23 11:17 Blood Pressure Position Sitting 07/17/23 11:17 Pulse Oximetry 99 07/17/23 11:17 Oxygen Delivery Method Room Air 07/17/23 11:17 Oxygen Flow Rate 0 07/17/23 11:17 Pain Level 0 07/17/23 11:17 PAWSS Have you Been Recently Intoxicated or Drunk Within the Last 30 days?: No Have you Ever Experienced Previous Episodes of Alcohol Withdrawal?: No Have you ever Experienced Withdrawal Seizures?: No Have you ever Experienced Delirium Tremens(DT)s?: No Have you ever undergone Alcohol Rehabilitation Treatment (i.e, inpt ot outpatient treatment programs)?: No Have you ever Experienced Blackouts?: No Have you ever Combined Alcohol with other Downers within the last 90 days?: No Have you ever Combined Alcohol with any other Substance of Abuse during the last 90 days?: No Result: 0
[2023-07-17 12:01] LABS: Bilirubin Negative (Negative); Blood Trace-intact (Negative); Clarity Clear (Clear); Glucose Negative (Negative); Ketones Negative (Negative); Leukocyte Esterase Small (Negative); Nitrite Negative (Negative); Urobilinogen 0.2 mg/dL (Up to 0.2); pH 6.5 (5-8)
[2023-07-17 12:03] LABS: Abs Immature Grans 0.02 10^3/uL (0.0-0.06); Absolute Basophil Count 0.04 10^3/uL (0.0-0.2); Absolute Eosinophil Count 0.05 10^3/uL (0.0-0.7); Absolute Lymphocyte Count 2.44 10^3/uL (1.2-3.4); Absolute Monocyte Count 0.42 10^3/uL (0.1-0.8); Basophils % 0.4; Eosinophils % 0.5; HCT 44.8 % (36.0-46.0); HGB 14.9 g/dL (11.2-15.7); Immature Grans % 0.2; Lymphocytes % 26.6; MCH 30.7 pg (27.0-33.0); MCHC 33.3 % (32.0-36.0); MCV 92 fL (80-95); MPV 8.6 fL (8.0-11.0); Monocytes % 4.6; Neutrophils % 67.7; Platelet Count 334 10^3/uL (130-400); RBC 4.85 10^6/uL (3.93-5.22); RDW-SD 41.3 fL; WBC 9.17 10^3/uL (4.4-10.8)
[2023-07-17 12:13] LABS: Bacteria Few HPF (Negative); C & S Indicated? No/Sq. Contamination; Casts Negative LPF (Negative); Crystals Negative HPF (Negative); Epithelial Cells Many HPF (Negative); Mucus Negative (Negative); Other Cells Few Transitional (Negative)
[2023-07-17 12:20] LABS: ALT 23 U/L (14-59); AST 13 U/L (15-37); Albumin 4.3 g/dL (3.4-5.0); Alkaline Phosphatase 82 U/L (46-116); Anion Gap 6.6 mmol/L (3-11); BUN 7 mg/dL (7-18); Bilirubin, Total 0.5 mg/dL (0.2-1.0); CO2 29.4 mmol/L (21.0-32.0); CREATININE 0.7 mg/dL (0.55-1.02); Calcium 9.6 mg/dL (8.5-10.1); Chloride 103 mmol/L (98-107); Estimated GFR 115.59 (mL/min/1.73m2); Glucose 108 mg/dL (74-106); Potassium 3.8 mmol/L (3.5-5.1); Sodium 139 mmol/L (136-145); Total Protein 8.6 g/dL (6.4-8.2); Troponin I < 50 ng/L (<or=60)
[2023-07-17 12:26] LABS: HCG Qual (Serum) Negative
[2023-07-17] MEDS: Omnipaque 350 MG/ML 100 ML BTL IJ (13:14)
[2023-07-17] MEDS: Normal Saline - Diluent 50 ML VIAL IJ (13:14)
[2023-07-17] MEDS: Normal Saline Flush 10 ML SYR IVP (13:14)
--- NOTE | 2023-07-17 13:59 | DI.VRAD_ITS ---
PROCEDURE INFORMATION: Exam: CTA Head With Contrast, Arteriography Exam date and time: 07/17/2023 12:58 PM Age: 33 years old Clinical indication: Headache and visual disturbance TECHNIQUE: Imaging protocol: Computed tomographic angiography of the head with contrast. Exam focused on the arteries. 3D rendering (Not supervised by radiologist): MIP and/or 3D reconstructed images were created by the technologist. Contrast material: OMNIPAQUE 350; Contrast volume: 100 ml; Contrast route: INTRAVENOUS (IV); COMPARISON: No relevant prior studies available. FINDINGS: ANTERIOR CIRCULATION: Right internal carotid artery: Intracranial segment is patent with no significant stenosis. No aneurysm. Right middle cerebral artery: No occlusion or significant stenosis. No aneurysm. Right anterior cerebral artery: No occlusion or significant stenosis. No aneurysm. Left internal carotid artery: Intracranial segment is patent with no significant stenosis. No aneurysm. Left middle cerebral artery: No occlusion or significant stenosis. No aneurysm. Left anterior cerebral artery: No occlusion or significant stenosis. No aneurysm. POSTERIOR CIRCULATION: Right vertebral artery: No occlusion or significant stenosis. No aneurysm. Left vertebral artery: No occlusion or significant stenosis. No aneurysm. Basilar artery: No occlusion or significant stenosis. No aneurysm. Right posterior cerebral artery: No occlusion or significant stenosis. No aneurysm. Left posterior cerebral artery: No occlusion or significant stenosis. No aneurysm. Brain: No definite mass, mass effect, or midline shift. No abnormal enhancement after contrast. Cerebral ventricles: No ventriculomegaly. Bones/joints: Unremarkable. No acute fracture. Soft tissues: Unremarkable. IMPRESSION: No large vessel stenosis or occlusion. No abnormality seen on pre and postcontrast imaging of the brain. PROCEDURE INFORMATION: Exam: CTA Neck With Contrast Exam date and time: 07/17/2023 12:58 PM Age: 33 years old Clinical indication: Headache and visual disturbance TECHNIQUE: Imaging protocol: Computed tomographic angiography of the neck with contrast. 3D rendering (Not supervised by radiologist): MIP and/or 3D reconstructed images were created by the technologist. Contrast material: OMNIPAQUE 350; Contrast volume: 100 ml; Contrast route: INTRAVENOUS (IV); COMPARISON: CT Abdomen^CAP WITH (Adult) 24/08/2018 10:31 FINDINGS: Right common carotid artery: No stenosis. No dissection or occlusion. Right internal carotid artery: No stenosis of the extracranial segment. No dissection or occlusion. Right external carotid artery: No occlusion or stenosis of the origin. Left common carotid artery: No stenosis. No dissection or occlusion. Left internal carotid artery: No stenosis of the extracranial segment. No dissection or occlusion. Left external carotid artery: No occlusion or stenosis of the origin. Right vertebral artery: No stenosis. No dissection or occlusion. Left vertebral artery: No stenosis. No dissection or occlusion. Soft tissues: Normal. No significant soft tissue swelling. Bones/joints: No acute fracture. IMPRESSION: No stenosis or occlusion. REFERENCES: NASCET CRITERIA. The degree of stenosis in the cervical segment of the internal carotid artery is based on NASCET criteria. Normal is no stenosis. Mild is less than 50% stenosis. Moderate is 50-69% stenosis. Severe is 70% to 99% stenosis. Total occlusion is no detectable patent lumen. Dictated and Authenticated by: Israel Coleman MD. Ordering:BREE Cartagena MD
[2023-07-17] MEDS: Ketorolac 15 MG/ML VIAL IVP (14:23)
[2023-07-17 15:35] LABS: Troponin I < 50 ng/L (<or=60)
== END 2023-07-17 16:01 | disposition home or self-care (01) ==
LOC: ER 15:53
PROVIDERS: Emergency Provider Emergency Medicine; PCP Nurse Practitioner Family
DX: R42 Dizziness and giddiness (principal); F17.210 Nicotine dependence, cigarettes, uncomplicated
CPT/HCPCS: 36415; 70496; 70498; 80053; 81025; 82962; 93005; 96374; 99285; 81003; 81015; 83735; 84484; 84703; 85025; 93010; 99284; J1885; J3490

== ENCOUNTER 2024-08-25 15:23 | Outpatient (REF) | payer BC, SELFPAY ==
--- NOTE | 2024-08-25 15:00 | PAPFT_PTH ---
PATIENT: Jade Garza LOC: [facility] U#:[id number] AGE/SX: 34/F ROOM: RE08/25/[address]: Sindi Malik DO : 1990 BED: DIS: 08/25/2024 SPEC #: [id number] RECD: 08/25/24 18:36 STATUS: SOUSergio REQ #: [id number] BRADY: 08/25/24 15:[address]: Sindi Malik DEPT: [facility] Cytology RECD BY: Carlie Perez ENTERED: 08/25/24 18:36 SP TYPE: PAPFT OTHR DR: Unknown,Unknown Tissues: 1 - CX/ENDOCX FOR PAP SMEARS Procedures: PAP THIN PREP/[facility] Screening HPV DNA PROBE Comments: [id number] (HPV 16 & 18/45)
== END 2024-08-25 15:24 | disposition home or self-care (01) ==
LOC: LBN 15:23
PROVIDERS: Visit Provider Obstetrics & Gynecology
DX: Z11.51 Encounter for screening for human papillomavirus (HPV) (principal); Z01.419 Encounter for gynecological examination (general) (routine) without abnormal findings; R87.610 Atypical squamous cells of undetermined significance on cytologic smear of cervix (ASC-US)
CPT/HCPCS: 88142; 87624

== ENCOUNTER 2024-09-25 02:44 | Outpatient (CLI) | payer BC, SELFPAY ==
[2024-09-25 18:05] LABS: Hemoglobin A1C 5.4 % (<5.7)
[2024-09-25 18:37] LABS: ALT 36 U/L (14-59); AST 18 U/L (15-37); Albumin 4.2 g/dL (3.4-5.0); Alkaline Phosphatase 88 U/L (46-116); Anion Gap 10.2 mmol/L (3-11); BUN 13 mg/dL (7-18); Bilirubin, Total 0.35 mg/dL (0.2-1.0); CO2 27.8 mmol/L (21.0-32.0); CREATININE 0.8 mg/dL (0.55-1.02); Chloride 102 mmol/L (98-107); Estimated GFR 97.87 (mL/min/1.73m2); Glucose 82 mg/dL (74-106); Potassium 4.1 mmol/L (3.5-5.1); Sodium 140 mmol/L (136-145); Total Protein 7.9 g/dL (6.4-8.2)
[2024-09-25 18:53] LABS: Calcium 9.3 mg/dL (8.5-10.1)
[2024-09-25 19:15] LABS: TSH (W/Ref FT4) 2.11 uIU/mL (0.36-3.74)
[2024-09-26 17:58] LABS: FSH 7.6 mIU/mL (See Note)
== END 2024-09-25 02:45 | disposition home or self-care (01) ==
LOC: LBO 02:44
PROVIDERS: Obstetrics & Gynecology; Visit Provider Nurse Practitioner Family
DX: E88.810 Metabolic syndrome (principal); Z68.35 Body mass index [BMI] 35.0-35.9, adult
CPT/HCPCS: 36415; 80053; 83001; 83036; 84443

== ENCOUNTER 2025-09-04 16:56 | Outpatient (REF) | payer BC, SELFPAY ==
--- NOTE | 2025-09-04 16:00 | PAPFT_PTH ---
PATIENT: Jade Garza LOC: [facility] U#:[id number] AGE/SX: 35/F ROOM: RE09/04/[address]: Sindi Malik DO : 1990 BED: DIS: 09/04/2025 SPEC #: [id number] RECD: 09/04/25 18:08 STATUS: IRMA REQ #: [id number] BRADY: 09/04/25 16:[address]: Sindi Malik DEPT: [facility] Cytology RECD BY: Carlie Perez ENTERED: 09/04/25 18:09 SP TYPE: PAPFT OTHR DR: Unknown,Unknown Tissues: 1 - CX/ENDOCX FOR PAP SMEARS Procedures: PAP THIN PREP/[facility] Screening HPV DNA PROBE Comments: [id number] (HPV 16 & 18/45)
== END 2025-09-04 16:57 | disposition home or self-care (01) ==
LOC: LBN 16:56
PROVIDERS: Visit Provider Obstetrics & Gynecology
DX: Z12.4 Encounter for screening for malignant neoplasm of cervix (principal)
CPT/HCPCS: 88142; 87624

== ENCOUNTER 2025-10-15 15:16 | Outpatient (REF) | payer BC, SELFPAY ==
--- NOTE | 2025-10-15 15:07 | ENDO_PTH ---
PATIENT: Jade Garza LOC: [facility] U#:[id number] AGE/SX: 35/F ROOM: RE10/15/[address]: Sindi Malik DO : 1990 BED: DIS: 10/15/2025 SPEC #: [id number] RECD: 10/15/25 17:39 STATUS: SOUT REQ #: [id number] BRADY: 10/15/25 15:[address]: Sindi Malik DEPT: Surgical Specimen RECD BY: Carlie Perez ENTERED: 10/15/25 17:39 SP TYPE: Endo OTHR DR: Unknown,Unknown Tissues: 1 - ENDOCERVICAL BX/CURRETTE 2 - CERVICAL BIOPSY Procedures: GROSS AND MICRO LEVEL 4 Comments: [id number]
== END 2025-10-15 15:17 | disposition home or self-care (01) ==
LOC: LBN 15:16
PROVIDERS: Visit Provider Obstetrics & Gynecology
DX: R87.619 Unspecified abnormal cytological findings in specimens from cervix uteri (principal)
CPT/HCPCS: 88305